=== PATIENT | female | born 1995 | race Caucasian/White ===

== ENCOUNTER 2018-12-03 14:03 | Emergency (ER) | payer OTHER ==
--- NOTE | 2018-12-03 14:06 | UC ---
Throat Pain/Nasal Deangelo HPI - HPI Summary HPI Summary: 23 yo female presents with sore throat and fever. She tells me that for the past 2 days she has had a sore throat, swollen tonsils, and fever of around 101F. Yesterday developed a frontal headache and sinus congestion with post nasal drip. She has been taking ibuprofen with good relief of fever and discomfort. Nothing else OTC. She is eating, drinking, and tolerating po well. Denies cough, rash, abdominal pain, n/v. She had mono in the past, but denies recent exposure. - History of Current Complaint Stated Complaint: ST,FEVER Time Seen by Provider: 12/03/18 14:05 Hx Obtained From: Patient Onset/Duration: Sudden Onset Severity: Moderate Pain Intensity: 5 Pain Scale Used: 0-10 Numeric - Allergies/Home Medications Allergies/Adverse Reactions: Allergies Allergy/AdvReac Type Severity Reaction Status Date / Time No Known Allergies Allergy Verified 12/03/18 14:19 Home Medications: Home Medications Norethindr/Eth Estradiol(Nf) [Lo Loestrin Fe (NF)] 1 tab PO BEDTIME 12/03/18 [ History Confirmed 12/03/18] PMH/Surg Hx/FS Hx/Imm Hx - Additional Past Medical History Additional PMH: None - Surgical History Surgical History: None - Family History Known Family History: Positive: None - Social History Occupation: Student Lives: With Family Alcohol Use: Occasionally Substance Use Type: None Smoking Status (MU): Never Smoked Tobacco Review of Systems All Other Systems Reviewed And Are Negative: Yes Constitutional: Positive: Fever Skin: Positive: Negative Eyes: Positive: Negative ENT: Positive: Sore Throat, Nasal Discharge, Sinus Congestion, Sinus Pain/ Tenderness Respiratory: Positive: Negative Cardiovascular: Positive: Negative Gastrointestinal: Positive: Negative Neurovascular: Positive: Negative Neurological: Positive: Negative Psychological: Positive: Negative Physical Exam - Summary Physical Exam Summary: GENERAL: NAD. WDWN. No pain distress. SKIN: No rashes, sores, lesions, or open wounds. HEENT: Head: AT/NC Eyes: Conjunctiva clear without inflammation or discharge. Ears: Hearing grossly normal. TMs intact, no bulging, erythema, or edema. Nose: Nasal mucosa mildly swollen and erythematous without discharge. TTP maxillary and frontal sinus. Positive post nasal drip Throat: Posterior oropharynx mild erythema and 2+ tonsillar enlargement. Mild exudates. Uvula midline. No hoarse voice or muffled voice. NECK: Supple. Mild TTP tonsillar LAD CHEST: CTAB. No r/r/w. No accessory muscle use. Breathing comfortably and in no distress. CV: RRR. Without m/r/g. Pulses intact. Cap refill <2seconds NEURO: Alert. PSYCH: Age appropriate behavior. Triage Information Reviewed: Yes Vital Signs: Vital Signs: Temp Pulse Resp BP Pulse Ox 99.3 F 110 16 118/73 100 12/03/18 14:15 12/03/18 14:15 12/03/18 14:15 12/03/18 14:15 12/03/18 14:15 Laboratory Tests 12/03/18 14:26 Group A Strep Rapid Negative Vital Signs Reviewed: Yes Throat Pain/Nasal Course/Dx - Course Course Of Treatment: POC strep negative. Suspect tonsillitis/sinusitis. Will avoid amoxicillin given hx of mono and potential for this today. Will draw for monospot and rx zpak. - Differential Dx/Diagnosis Provider Diagnosis: Tonsillitis Discharge - Sign-Out/Discharge Documenting (check all that apply): Patient Departure All imaging exams completed and their final reports reviewed: No Studies - Discharge Plan Condition: Stable Disposition: HOME Prescriptions: Azithromycin TAB* [Zithromax TAB (Z-CHANDLER) 250 mg #6 tabs] 2 tab PO .TODAY, THEN 1 DAILY #1 chandler Patient Education Materials: Tonsillitis (ED) Referrals: No Primary Care Phys,NOPCP [Primary Care Provider] - Additional Instructions: If you develop a fever, shortness of breath, chest pain, new or worsening symptoms - please call your PCP or go to the ED immediately. Continue taking ibuprofen as directed for your discomfort/fever. - Billing Disposition and Condition Condition: STABLE Disposition: Home - Attestation Statements Provider Attestation: I was available for consult. This patient was seen by the SABIHA. The patient was not presented to , seen by or examined by -Bryan Carney MD
[2018-12-03 14:19] VITALS: BP 118/73
== END 2018-12-03 14:56 | disposition home or self-care (01) ==
LOC: UCCORT 14:03
DX: J03.90 Acute tonsillitis, unspecified (principal)
CPT/HCPCS: 36415; 86308; 87651; 99202; G0463